=== PATIENT | male | born 1985 ===

== ENCOUNTER 2023-11-19 12:45 | Emergency (ER) | payer OTHER, SELFPAY ==
[2023-11-19 12:48] VITALS: BP 155/98
--- NOTE | 2023-11-19 13:21 | ED.GENMED ---
History of Present Illness
General
Chief Complaint: Foreign Body Ingestion
Source: patient and ambulance crew
Exam Limitations: none
Time Seen by Provider: 11/19/23 12:53
Nursing documentation reviewed up to this point in time: agreed with
Travel History
Have you had any contact with someone who has COVID-19?: No
Do you have any symptoms of coronavirus? Fever > 100 degrees, chills, cough, shortness of breath, sore throat, loss of taste or smell, muscle aches, or headache?: No
History of Present Illness
History of Present Illness:
38-year-old male presents emergency department due to a misplaced glass syringe. [facility]. Staff believes that he swallowed or placed a glass syringe without the needle into his rectum. Staff states there was a missing
syringe and the patient stepped into the bathroom, so there was no witnessed placement into his rectum or swallowing.
Past History
Past History
ED Past Medical History: Seizures
ED Past Surgical History: Other (Hernia repair)
Social History
Tobacco: Non-smoker
Alcohol: None
Drug: Narcotics
Living: senior living
Review of Systems
Review of Systems
Allergies reviewed?: Yes
All Other Systems: Not applicable
Constitutional: Reports no symptoms
EENT: Reports no symptoms
Respiratory: Reports no symptoms
Cardiac: Reports no symptoms
ABD/GI: Reports no symptoms
: Reports no symptoms
Musculoskeletal: Reports no symptoms
Skin: Reports no symptoms
Neurological: Reports no symptoms
Endocrine: Reports no symptoms
Hematologic/Lymphatic: Reports no symptoms
Psychiatric: Reports no symptoms
Phy Exam
Physical Exam
Physical Exam:
Physical Exam
General: no apparent distress, not acutely ill
Neck: supple. no meningeal signs. normal posterior pharynx
Heart: s1/s2 regular rate and rhythm, no murmur. equal radial
pulses.
HEENT: Pupils equal round reactive to light, EOMI
Lungs: no acute respiratory distress. clear bilaterally
Abdomen: normal bowel sounds. not tender. no CVAT
Neuro: alert and oriented. no focal neurological deficits cranial nerves II through XII intact
Skin: no rash
Psychiatric: well kept. interactive and cooperative
Extremities: no edema. no calf tenderness. negative homans. good distal pulses
Course
Orders/Labs/Results
Orders:
Orders
11/19/23 13:06
CR Obstruct Series W/pa Chest Urgent
Comment:
Reason For Exam: swallowed fb/inserted
Vital Signs
Initial and Last Documented VS:
Initial Vital Signs
Temp Pulse Resp BP Pulse Ox
99.0 F 84 20 155/98 100
11/19/23 12:48 11/19/23 12:48 11/19/23 12:48 11/19/23 12:48 11/19/23 12:48
Last Documented Vital Signs
Temp Pulse Resp BP Pulse Ox
99.0 F 84 20 155/98 100
11/19/23 12:48 11/19/23 12:48 11/19/23 12:48 11/19/23 12:48 11/19/23 12:48
MDM/Problems Addressed
Differential Diagnosis Includes:
Foreign body ingestion versus rectal foreign body
MDM/Problems Addressed:
38-year-old male with no foreign body found. Stable for discharge. Called
*Radiology
Radiology exam reviewed: preliminary read by ED provider (Obstruction series no foreign body)
*Pulse Oximetry
Patient hypoxic: no
*EKG
Interpreted by ED Provider?: NA
*College Advisor Interpretation
Rate: College Advisor- N/A
*Critical Care Note
Total Time (30-74mins, 75-104mins- exclusive of procedures): Not Applicable
Patient Management
Social determinants of health affecting care: Living situation
Escalation/DeEscalation of care consider admission/obs:
Admit not indicated
ED Attending Note
-
Portions of this chart may have been created with voice recognition software.� Occasional wrong word or��sound alike� substitutions may have occurred due to the inherent limitations of voice recognition software.
Discharge Plan
Departure
Patient Disposition: Home (Routine Discharge)
Date of Disposition: 11/19/23
Time of Disposition: 14:20
Patient with high blood pressure during this ER visit?: Yes
Condition: Good
Discharge Problem:
Encounter for observation for suspected ingested foreign body ruled out
Instructions: Swallowed Objects, Adult (DC), BLOOD PRESSURE
Referrals:
[facility] [Family Provider] - Call in 1-3 days for appt
Interventions
Interventions:
*Risk Screen - Suicide Last Done: 11/19/23 12:48
*General Assessment Last Done: 11/19/23 12:48
*Neglect/Abuse Screening Last Done: 11/19/23 12:48
Discharge Date and Time
Print Language: [id number]
[2023-11-19 14:46] VITALS: BP 134/73
== END 2023-11-19 14:47 | disposition home or self-care (01) ==
LOC: EMR 12:45
PROVIDERS: EMERGENCY PHYSICIAN Emergency Medicine
DX: Z04.89 Encounter for examination and observation for other specified reasons (principal)
CPT/HCPCS: 99283; 74022